=== PATIENT | male | born 1960 | race Caucasian/White ===

== ENCOUNTER 2019-01-17 07:04 | Emergency (ER) | payer MEDICAID, OTHER ==
[~2019-01-17] VITALS: Ht 177.8 cm; Wt 90.9 kg
[~2019-01-17 07:04] MED LIST: CYCL10TA7 PO; HYDR-4011 PO; NAPR-985 PO; NORCO PO
[2019-01-17 07:13] VITALS: BP 132/73; PULSE 77; RESP 18; Ht 177.8 cm; Wt 90.9 kg
[2019-01-17] MEDS ORDERED: IBUPROFEN 800 MG TAB PO ONE (07:30)
== END 2019-01-17 08:18 | disposition home or self-care (01) ==
LOC: FTE 07:04
DX: S20.211A Contusion of right front wall of thorax, initial encounter (principal); S60.211A Contusion of right wrist, initial encounter; V49.40XA Driver injured in collision with unspecified motor vehicles in traffic accident, initial encounter
CPT/HCPCS: 71100